=== PATIENT | male | born 1960 | race Caucasian/White ===

== ENCOUNTER 2017-06-27 11:17 | Emergency (ER) | payer BC ==
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
[2017-06-27 13:00] LABS: BASO % 0.2 % (0-6); EOS % 0.8 % (0-6); GRAN % 71.4 % (47-80); HEMOGLOBIN 17.4 gm/dl (14.0-18.0); LYMPH % 21.3 % (16-45); MEAN CELL VOLUME 89.9 fl (81-97); MEAN CORPUSCULAR HEMOGLOBIN 30.7 pg (27-33); MEAN CORPUSCULAR HGB CONC 34.1 g/dl (32-36); MEAN PLATELET VOLUME 8.7 fl (7.4-10.4); MONO % 6.3 % (0-9); PLATELET COUNT 238 K/uL (130-400); RED BLOOD COUNT 5.67 M/uL (4.40-5.70); RED CELL DISTRIBUTION WIDTH 12.2 % (11.5-14.5); WHITE BLOOD COUNT W/O DIFF 6.2 K/uL (4.2-12.2)
[2017-06-27] MEDS: 0.9 % SODIUM CHLORIDE 1,000 ML BAG IV ONE (13:03)
[2017-06-27] MEDS: ONDANSETRON HCL IV 4 MG/2 ML VIAL IVP ONE (13:03)
[2017-06-27] MEDS: LORAZEPAM 2 MG/ML VIAL IV ONE (13:09)
[2017-06-27 13:13] LABS: ALB/GLOB RATIO 1.7 (1.1-1.8); ALBUMIN 5.2 gm/dL (3.5-5.0); ALKALINE PHOSPHATASE 53 U/L (38-126); ALT/SGPT 50 U/L (21-72); ANION GAP 9.4 (7-16); AST/SGOT 23 U/L (17-59); BILIRUBIN,TOTAL 1.35 mg/dL (0.2-1.3); BLOOD UREA NITROGEN 20 mg/dL (9-20); CARBON DIOXIDE 29.6 mmol/L (22-30); CREATININE 0.9 mg/dL (0.66-1.25); EST GLOMERULAR FILTRATION RATE > 60 ml/min; GLUCOSE,RANDOM 98 mg/dL (70-110); TOTAL PROTEIN 8.2 gm/dL (6.3-8.2)
[2017-06-27] MEDS: MECLIZINE 25 MG TABLET PO ONE (14:05)
== END 2017-06-27 14:52 | disposition home or self-care (01) ==
LOC: ER 11:17
DX: R42 Dizziness and giddiness (principal); R27.0 Ataxia, unspecified; R11.0 Nausea; R53.1 Weakness
CPT/HCPCS: 99284 ×2; 96374; 96375; 85025; 80053; J2405; J2060; J7030

== ENCOUNTER → 2018-11-05 | Day surgery (SDC) | payer BC ==
[~2018-11-05] MED LIST: LIDOCAINE 2% MDV (20MG/ML) 20ML VIAL IV ONE; PROPOFOL 10 MG/ML VIAL IV ONE
--- NOTE | 2018-11-10 09:30 | Operative Note ---
DATE OF SURGERY: 11/05/2018 SURGEON: Crystal Kern MD OPERATION: COLONOSCOPY. INDICATIONS: This is a 58-year-old male with history of average risk for colorectal cancer who presented for screening colonoscopy. POSTOPERATIVE DIAGNOSES: 1. A 3 mm sessile polyp in the rectum that was removed by cold biopsy forceps. 2. Left-sided colonic diverticulosis. 3. Otherwise normal colon and terminal ileum. ANESTHESIA: Sedation is per Anesthesia. Pulse oximetry was monitored throughout the procedure to maintain O2 saturation of 90% or greater. Supplemental oxygen was administered via nasal cannula. Cardiac and vital signs were monitored throughout the duration of the procedure, and they were stable. The procedure of colonoscopy and risks and alternatives of the procedure, including the risk of bleeding and perforation, among others, were explained to the patient who voiced understanding and agreed to have the procedure done. Physical examination was performed, and the patient was found stable for sedation. PROCEDURE: The patient was placed in the left lateral position. Sedation was initiated. A digital rectal exam was performed and showed some mild external hemorrhoids with no palpable rectal masses. An Olympus PCF-180AL colonoscope was then inserted into the rectum under direct visualization. It was advanced to the cecum without difficulty. The ileocecal valve and appendiceal orifice were identified and photographed. The colonic mucosa was carefully examined upon introduction of the colonoscope. There were scattered diverticula noted in the sigmoid and descending colon. The ileocecal valve was intubated and terminal ileal mucosa was inspected for about 10 cm and it appeared normal. The colonoscope was then withdrawn while carefully examining the colonic mucosal surfaces. No other lesions were noted. Of note is that the prostate is mildly enlarged during the digital rectal examination. The colonoscope was then retroflexed and no other lesions were noted. The colonoscope was then withdrawn and the procedure was terminated. The patient tolerated the procedure well without any immediate complications. The patient remained with stable vital signs and was transferred to the recovery room. RECOMMENDATIONS: 1. The patient should be on a high-fiber diet. 2. The patient is to have a repeat colonoscopy for surveillance in 5 or 10 years depending on the histology of the polyp. Thank you for allowing me to participate in the care of your patient. CC: MD GORDY Miranda
== END | disposition home or self-care (01) ==
LOC: HOP 12:08
PROVIDERS: ATTEND Internal Medicine Gastroenterology
DX: Z12.11 Encounter for screening for malignant neoplasm of colon (principal); K62.1 Rectal polyp; K57.30 Diverticulosis of large intestine without perforation or abscess without bleeding; I10 Essential (primary) hypertension; E78.00 Pure hypercholesterolemia, unspecified; K21.9 Gastro-esophageal reflux disease without esophagitis